=== PATIENT | male | born 1975 | race Caucasian/White ===

== ENCOUNTER → 2024-05-13 09:58 | Outpatient (REF) | payer BC, SELFPAY ==
[2024-05-13 11:54] LABS: % Basophils 0.7 % (0-2); % Eosinophils 1.5 % (0-6); % Immature Granulocytes 0.3 % (0-0.5); % Lymphocytes 42.4 % (20.5-51.1); % Monocytes 6.5 % (1.7-9.3); % Neutrophils 48.6 % (42.2-75.2); Absolute Eosinophils 0.1 10^3/uL (0-0.7); Absolute Lymphocytes 2.6 10^3/uL (1.2-3.4); Absolute Monocytes 0.4 10^3/uL (0.1-0.6); Absolute Neutrophils 2.9 10^3/uL (1.4-6.5); Hematocrit 38.9 % (39.0-52.0); Hemoglobin 13.3 g/dL (13.0-18.0); Mean Corp Hgb Conc. 34.2 g/dL (33.0-37.0); Mean Corpuscular Hgb 30.4 pg (27.0-31.0); Mean Platelet Volume 9.8 fL (7.4-10.4); Nucleated Red Blood Cells % 0 % (-); Platelet Count 235 10^3/uL (130-400); Red Blood Cell Count 4.37 10^6/uL (4.70-6.10); Red Cell Dist. Width 12.4 % (11.5-14.5)
[2024-05-13 11:59] LABS: ALT (SGPT) 19 U/L (0-50); AST (SGOT) 35 U/L (17-59); Albumin 4.4 g/dl (3.5-5.0); Alkaline Phosphatase 54 U/L (38-126); Blood Urea Nitrogen 18 mg/dl (9-20); Calcium 9.4 mg/dl (8.4-10.2); Carbon Dioxide 26 mmol/L (22-30); Chloride 111 mmol/L (98-107); Glucose 100 mg/dl (70-99); Iron 81 ug/dl (49-181); Potassium 4.5 mmol/L (3.5-5.1); Sodium 143 mmol/L (135-145); Total Bilirubin 0.5 mg/dl (0.2-1.3); Total Protein 6.9 g/dl (6.3-8.2); eGFR > 60.00
[2024-05-13 12:13] LABS: Erythrocyte Sed Rate 8 mm/hour (0-20)
[2024-05-13 12:14] LABS: C-Reactive Protein < 5.00 mg/L (0.0-10.00)
[2024-05-13 12:29] LABS: Vitamin D, 25-OH*** 51.9 ng/mL (30-80)
[2024-05-13 12:31] LABS: Hepatitis B Surface Antigen Negative (Negative)
[2024-05-13 12:48] LABS: Hepatitis B Core Ab, Total Negative (Negative); Hepatitis B Surface Antibody Negative
[2024-05-13 13:19] LABS: Folate 15.5 ng/ml (2.76-20); Vitamin B12 234 pg/ml (239-931)
== END ==
LOC: HWLAB 09:58
PROVIDERS: ATTENDING PHYSICIAN Internal Medicine; FAMILY PHYSICIAN Nurse Practitioner Family
DX: K51.00 Ulcerative (chronic) pancolitis without complications (principal)
CPT/HCPCS: 36415; 80053; 82306; 82607; 82728; 82746; 83540; 85025; 85652; 86140; 86480; 86704; 86706; 87340

== ENCOUNTER → 2024-10-13 06:26 | Day surgery (SDC) | payer BC, SELFPAY | LOC: GI 06:26 | PROVIDERS: ATTENDING PHYSICIAN Internal Medicine | DX: Z12.11 Encounter for screening for malignant neoplasm of colon (principal); K51.00 Ulcerative (chronic) pancolitis without complications; K64.9 Unspecified hemorrhoids; D12.2 Benign neoplasm of ascending colon | CPT/HCPCS: 45385; 45381; 45380; 88305 ==

== ENCOUNTER 2025-01-20 06:17 | Day surgery (SDC) | payer BC, SELFPAY ==
[2025-01-20 09:48] VITALS: BMI 32.6
[2025-01-20 09:49] VITALS: BMI 32.6
[2025-01-20 09:50] VITALS: BP 143/87
[2025-01-20 13:19] VITALS: BP 117/91
[2025-01-20 13:39] VITALS: BP 103/68
[2025-01-20 13:45] VITALS: BP 106/73
== END 2025-01-20 14:00 | disposition home or self-care (01) ==
LOC: GI 06:17
PROVIDERS: ATTENDING PHYSICIAN Internal Medicine Gastroenterology
DX: D12.2 Benign neoplasm of ascending colon (principal); K63.5 Polyp of colon; K64.0 First degree hemorrhoids
CPT/HCPCS: 45385; 88305